=== PATIENT | male | born 1985 | race African-American/Black ===

== ENCOUNTER 2020-01-23 19:48 | Emergency (ER) | payer BC ==
[~2020-01-23] VITALS: Ht 172.7 cm; Wt 87.5 kg
[2020-01-23] MEDS ORDERED: LOXAPINE10 MG PO (19:57)
[2020-01-23 20:00] LABS: URINE BILIRUBIN NEGATIVE (Negative); URINE BLOOD TRACE (Negative); URINE CLARITY CLEAR; URINE COLOR YELLOW; URINE GLUCOSE-RANDOM* NEGATIVE (Negative); URINE KETONES NEGATIVE (Negative); URINE LEUKOCYTES-REFLEX NEGATIVE (Negative); URINE NITRITE-REFLEX NEGATIVE (Negative); URINE PROTEIN (DIPSTICK) NEGATIVE (Negative); URINE SPECIFIC GRAVITY >= 1.030 (1.005-1.035); URINE UROBILINOGEN 0.2 E.U./dl (0.2-1.0)
[2020-01-23 20:37] VITALS: BP 144/97
== END 2020-01-23 20:40 | disposition home or self-care (01) ==
LOC: ER 19:48
PROVIDERS: Physician Assistant
DX: A64 Unspecified sexually transmitted disease (principal); F31.9 Bipolar disorder, unspecified; Z79.899 Other long term (current) drug therapy